=== PATIENT | male | born 1965 | race Caucasian/White ===

== ENCOUNTER 2021-08-29 17:53 | Inpatient (IN) | payer BC ==
[2021-08-29] MEDS ORDERED: Lidocaine 1% PF 5 ML VIAL ONE (18:36)
[2021-08-29] MEDS ORDERED: Heparin 10,000 UNITS/ 10 ML VIAL ONE ×2 (18:36→19:22)
[2021-08-29] MEDS ORDERED: Nitroglycerin 50 MG/250 ML BOT 250 ML ONE (18:36)
[2021-08-29] MEDS ORDERED: Adenosine 6 MG/2 ML VIAL ONE (18:37)
[2021-08-29] MEDS ORDERED: Bivalirudin 250 MG VIAL ONE (18:37)
[2021-08-29] MEDS ORDERED: Verapamil 5 MG/2 ML VIAL ONE (18:37)
[2021-08-29] MEDS ORDERED: Sodium Chloride 0.9% 1,000 ML ONE (18:37)
[2021-08-29] MEDS ORDERED: Fentanyl 100 MCG/2 ML VIAL ONE (18:49)
[2021-08-29] MEDS ORDERED: Midazolam HCl 2 mg/2 ml Vial ONE ×2 (18:50→19:17)
[2021-08-29] MEDS ORDERED: TICAGRELOR 90 MG TABLET ONE (19:14)
[2021-08-29] MEDS ORDERED: Nitroglycerin 0.4 MG TAB (25 Tab Bottle) SL PRN (20:15)
[2021-08-29] MEDS: Sodium Chloride 0.9% 1,000 ML IV SCH (20:30)
[2021-08-29 21:01] VITALS: BMI 30.1
[2021-08-29] MEDS ORDERED: Acetaminophen 325 MG TAB PO PRN (21:34)
[2021-08-29] MEDS ORDERED: HumaLOG 300 UNITS/3 ML VIAL SC PRN (21:45)
[2021-08-29] MEDS ORDERED: Dextrose 5% in Water 1,000 ML IV PRN (21:45)
[2021-08-29] MEDS ORDERED: Dextrose 50% Abboject 50 ML SYRINGE IVP PRN (21:45)
[2021-08-29] MEDS ORDERED: Zolpidem Tartrate 5 MG TAB PO SCH (21:45)
[2021-08-29] MEDS: Rosuvastatin 20 MG TAB PO SCH (22:35)
[2021-08-30 03:53] LABS: #Basophils 0.1 10x3/uL (0.0-0.2); #Eosinphils 0.2 10x3/uL (0.0-0.5); #Monocytes 1.2 10x3/uL (0.0-1.1); #Neutrophils 6.9 10x3/uL (1.5-8.4); %Basophils 0.6 % (0.0-2.0); %Eosinophils 1.9 % (0.0-6.0); %Lymphocytes 19.8 % (18.0-47.0); %Monocytes 11.8 % (0.0-10.0); %Neutrophils 65.6 % (40.0-75.0); Hemoglobin 16.9 g/dL (13.5-17.5); Mean Corpuscular HGB CONC 34.6 g/dL (32.0-36.0); Mean Corpuscular Hemoglobin 31.5 pg (27.0-33.0); Platelet Count 224 10x3/uL (150-450); RBC Distribution Width 12.7 % (11.5-14.5); Red Blood Cell (RBC) Count 5.36 10x6/uL (4.32-5.72); White Blood Cell (WBC) Count 10.5 10x3/uL (3.5-10.5)
[2021-08-30 04:12] LABS: ALT (SGPT) 13 U/L (8-55); AST (SGOT) 23 U/L (5-34); Alkaline Phosphatase 68 U/L (40-110); Anion Gap 13 mmol/L (10-20); BUN (Urea Nitrogen) 16 mg/dL (8.4-25.7); Bilirubin, Total 0.8 mg/dL (0.2-1.2); Calc. Creatinine Clearance 137 mL/min (70-130); Calcium 8.8 mg/dL (7.8-10.44); Carbon Dioxide 23 mmol/L (22-29); Cardiac Risk 6.3 (Less than 4.5); Chloride 108 mmol/L (98-107); Cholesterol 196 mg/dl (< 200 Desired); Globulin 2.5 g/dL (2.4-3.5); Glucose 134 mg/dL (70-105); HDL Cholesterol 31 mg/dL (>60 Neg Risk); LDL Cholesterol, Calculated 129 mg/dL; Potassium 3.6 mmol/L (3.5-5.1); Protein, Total 6.5 g/dL (6.0-8.3); Sodium 140 mmol/L (136-145); Triglycerides 178 mg/dL (Less than 150)
[2021-08-30 04:23] LABS: Troponin I 2.446 ng/mL (< 0.028)
[2021-08-30] MEDS ORDERED: Aspirin Chewable 81 MG TAB PO SCH (07:00)
[2021-08-30] MEDS ORDERED: TICAGRELOR 90 MG TABLET PO SCH ×2 (07:00)
[2021-08-30] MEDS ORDERED: Metoprolol Tartrate 50 MG TAB PO SCH (09:00)
[2021-08-30] MEDS ORDERED: Lisinopril 10 MG TAB PO SCH (09:00)
[2021-08-30] MEDS ORDERED: Carvedilol 6.25 MG TAB PO SCH ×2 (10:00→17:00)
[2021-08-30] MEDS: Sodium Chloride 0.9% 1,000 ML IV SCH (17:59)
[2021-08-30] MEDS: Carvedilol 12.5 MG TAB PO SCH (18:00)
[2021-08-30] MEDS: Rosuvastatin 20 MG TAB PO SCH (19:30)
[2021-08-30] MEDS: TICAGRELOR 90 MG TABLET PO SCH (19:30)
[2021-08-31] MEDS: Sodium Chloride 0.9% 1,000 ML IV SCH (00:51)
[2021-08-31 05:03] VITALS: TEMP 98.4
[2021-08-31] MEDS: Carvedilol 12.5 MG TAB PO SCH (07:59)
[2021-08-31] MEDS: Lisinopril 10 MG TAB PO SCH (07:59)
[2021-08-31 08:00] VITALS: BP 140/84
[2021-08-31] MEDS: TICAGRELOR 90 MG TABLET PO SCH (08:00)
== END 2021-08-31 07:45 | disposition home or self-care (01) | DRG 246 ==
LOC: CSHERS 17:53 → CSHTELE 17:54
PROVIDERS: ADMIT Specialist; ATTEND Specialist
PROC: 4A023N7 Measurement of Cardiac Sampling and Pressure, Left Heart, Percutaneous Approach (ICD-10-PCS; principal; 2021-08-29)
PROC: 027135Z Dilation of Coronary Artery, Two Arteries with Two Drug-eluting Intraluminal Devices, Percutaneous Approach (ICD-10-PCS; 2021-08-29)
PROC: B2111ZZ Fluoroscopy of Multiple Coronary Arteries using Low Osmolar Contrast (ICD-10-PCS; 2021-08-29)
PROC: B2151ZZ Fluoroscopy of Left Heart using Low Osmolar Contrast (ICD-10-PCS; 2021-08-29)
DX: I21.4 Non-ST elevation (NSTEMI) myocardial infarction (principal); I50.21 Acute systolic (congestive) heart failure; I25.10 Atherosclerotic heart disease of native coronary artery without angina pectoris; E78.5 Hyperlipidemia, unspecified; E11.9 Type 2 diabetes mellitus without complications; I11.0 Hypertensive heart disease with heart failure; F17.210 Nicotine dependence, cigarettes, uncomplicated; Z83.6 Family history of other diseases of the respiratory system; Z82.3 Family history of stroke; Z79.84 Long term (current) use of oral hypoglycemic drugs; Z79.899 Other long term (current) drug therapy
CPT/HCPCS: 36415; 36416; 80053; 80061; 84484; 85025; 85347; 92928; 92978; 92979; 93005; 93010; 93306; 93458; 97139; 99152; 99153; C1753; C1874; C1887; C9600; J0153; J0583; J1644; J2250; J3010; J7050